=== PATIENT | male | born 1955 | race Caucasian/White ===

== ENCOUNTER 2018-01-22 15:56 | Emergency (ER) | payer MEDICAID ==
[2018-01-22] MEDS: NAPROXEN 500 MG TAB PO (18:51)
[2018-01-22] MEDS: OXYCODONE/ACETAMINOPHEN (10/325) TAB PO (18:54)
== END 2018-01-22 19:00 | disposition home or self-care (01) ==
LOC: FTE 15:56
DX: M25.551 Pain in right hip (principal); F17.210 Nicotine dependence, cigarettes, uncomplicated
CPT/HCPCS: 99283; Z7502

== ENCOUNTER 2018-01-23 09:42 | Emergency (ER) | payer MEDICAID ==
[2018-01-23] MEDS ORDERED: traMADol 50 MG TAB PO (11:00)
== END 2018-01-23 11:35 | disposition left against medical advice (07) ==
LOC: FTE 09:42
DX: M25.551 Pain in right hip (principal); G89.29 Other chronic pain; Z76.5 Malingerer [conscious simulation]
CPT/HCPCS: 99282; Z7502